=== PATIENT | male | born 1930 | race Caucasian/White ===

== ENCOUNTER 2016-12-10 13:34 | Inpatient (IN) | payer MEDICARE ==
[~2016-12-10] VITALS: Ht 185.4 cm; Wt 81.2 kg
[~2016-12-10 13:34] MED LIST: ASPIRIN ADULT L81 M1 PO; CRESTOR10 MG; ESIDREX,ORETI12.5 MG PO; LISINOPRIL10 MG PO; METFORMIN500 MG PO; METOPROLOL SR25 MG PO; NOVOLIN 70/30 701 EA SC; NOVOLIN 70100 UNIT/1 SC
[2016-12-10 13:42] VITALS: BP 170/86
[2016-12-10 14:12] LABS: BASO # 0.1 10*3/uL (0.0-0.1); BASO % 0.6 % (0.0-1.0); EOS # 0.1 10*3/uL (0.0-0.4); EOS % 1.4 % (1.0-4.0); HEMATOCRIT 36.9 % (42.0-52.0); HEMOGLOBIN 12.3 g/dl (14.0-18.0); LYMPH # 3.7 10*3/uL (1.3-4.4); LYMPH % 37.5 % (27.0-41.0); MEAN CELL VOLUME 90.2 fl (80.0-94.0); MEAN CORPUSCULAR HGB 30.1 pg (27.0-31.0); MEAN CORPUSCULAR HGB CONC 33.3 g/dl (33.0-37.0); MEAN PLATELET VOLUME 10.2 fl (9.6-12.3); MONO # 0.6 10*3/uL (0.1-1.0); MONO % 6.3 % (3.0-9.0); NEUT # 5.3 10*3/uL (2.3-7.9); PLATELET COUNT AUTOMATED 200 10*3/uL (130-400); RED BLOOD COUNT 4.09 10*6/uL (4.50-5.90); RED CELL DISTRI WIDTH 14.5 % (0-14.5); WHITE BLOOD COUNT 9.7 10*3/uL (4.8-10.8)
[2016-12-10 14:21] LABS: ACT PARTIAL THROMBO TIME 22.7 SECONDS (20.8-31.5)
[2016-12-10 14:28] LABS: ALKALINE PHOSPHATASE 83 U/L (45-117); BUN 29 mg/dl (7-24); CHLORIDE 107 mmol/L (98-107); CREATININE 1.87 mg/dL (0.70-1.30); MAGNESIUM 1.9 mg/dL (1.5-2.1); POTASSIUM 5.6 mmol/L (3.5-5.1); SGOT/AST 43 IU/L (3-35); SGPT/ALT 27 U/L (12-78); SODIUM 139 mmol/L (136-145); TOTAL PROTEIN 7.3 gm/dL (6.4-8.2)
[2016-12-10 14:31] LABS: TROPONIN I < 0.015 ng/ml (<0.045)
[2016-12-10 14:33] LABS: CKMB 5.6 ng/ml (0.5-3.6)
[2016-12-10 14:50] VITALS: BP 133/57
[2016-12-10 15:42] VITALS: BP 149/49
[2016-12-10 16:49] LABS: BILIRUBIN NEGATIVE (NEGATIVE); BLOOD TRACE-LYSED (NEGATIVE); CLARITY CLEAR (CLEAR); COLOR YELLOW (YELLOW); GLUCOSE NEGATIVE (NEGATIVE); KETONE NEGATIVE (NEGATIVE); LEUKO ESTERASE NEGATIVE (NEGATIVE); NITRITE NEGATIVE (NEGATIVE); UROBILINOGEN 0.2 E.U./dl (0.2-1.0)
[2016-12-10 16:58] LABS: URINE AMPHETAMINES < 1000 (1000ng/ml); URINE BARBITURATES < 200 (200ng/ml); URINE BENZODIAZEPINES < 200 (200ng/ml); URINE CANNABINOIDS (THC) < 50 (50ng/ml); URINE COCAINE < 300 (300ng/ml); URINE METHADONE < 300 (300ng/ml); URINE OPIATES < 300 (300ng/ml); URINE PHENCYCLIDINE < 25 (25ng/ml)
[2016-12-10 17:03] LABS: BACTERIA TRACE
[2016-12-10 17:04] LABS: EPITHELIAL CELLS 0-2
--- NOTE | 2016-12-10 17:11 | NUR ---
MED REC REVIEWED AND COMPLETED WITH YAZMIN MONTOYA [facility]
[2016-12-10 17:18] LABS: CPK 713 U/L (39-308)
[2016-12-10 17:24] LABS: CKMB 5.9 ng/ml (0.5-3.6); TROPONIN I < 0.015 ng/ml (<0.045)
--- NOTE | 2016-12-10 17:27 | NUR ---
CALLED AND SPOKE JULIO DR [place] REPORTED [facility] CAME BACK AT 5.9.
[2016-12-10 20:00] VITALS: BP 145/50; BP 164/56
[2016-12-10 20:40] LABS: CPK 790 U/L (39-308)
[2016-12-10 20:44] LABS: TROPONIN I < 0.015 ng/ml (<0.045)
[2016-12-10 20:51] LABS: CKMB 5.6 ng/ml (0.5-3.6)
--- NOTE | 2016-12-10 21:00 | NUR ---
CALLED DR KAPLAN AND NOTIFIED PATIENTS [facility] WAS 5.6 NO ORDERS RECEIVED AT THIS TIME
--- NOTE | 2016-12-10 23:27 | NUR ---
PATIENT RESTING IN BED NO CO AT THIS TIME SEE SHIFT ASSESSMENT
[2016-12-11] VITALS: BP 134/55; BP 164/56
[2016-12-11 04:00] VITALS: BP 134/55
--- NOTE | 2016-12-11 05:28 | NUR ---
PATIENT SLEEPING IN [facility] ERN CALL LIGHT IN REACH
[2016-12-11 07:12] LABS: BASO # 0.1 10*3/uL (0.0-0.1); BASO % 0.5 % (0.0-1.0); EOS # 0.4 10*3/uL (0.0-0.4); EOS % 4.3 % (1.0-4.0); HEMATOCRIT 38.8 % (42.0-52.0); HEMOGLOBIN 12.5 g/dl (14.0-18.0); LYMPH % 50.7 % (27.0-41.0); MEAN CELL VOLUME 92.4 fl (80.0-94.0); MEAN CORPUSCULAR HGB 29.8 pg (27.0-31.0); MEAN CORPUSCULAR HGB CONC 32.2 g/dl (33.0-37.0); MONO # 0.5 10*3/uL (0.1-1.0); MONO % 5.4 % (3.0-9.0); NEUT # 3.8 10*3/uL (2.3-7.9); NEUT % 38.9 % (47.0-73.0); PLATELET COUNT AUTOMATED 217 10*3/uL (130-400); RED CELL DISTRI WIDTH 14.6 % (0-14.5); WHITE BLOOD COUNT 9.9 10*3/uL (4.8-10.8)
[2016-12-11 07:39] LABS: ALBUMIN 3.9 gm/dl (3.1-4.5); CREATININE 1.45 mg/dL (0.70-1.30); MAGNESIUM 1.7 mg/dL (1.5-2.1); PHOSPHOROUS 3.4 mg/dL (2.5-4.9); THYROID STIM HORMONE (HS) 3.61 uIU/ml (0.358-4.75); TOTAL PROTEIN 7.3 gm/dL (6.4-8.2)
[2016-12-11 08:00] VITALS: BP 130/52
[2016-12-11 08:33] LABS: VITAMIN D, 25-HYDROXY 30.7 ng/mL (30-100)
[2016-12-11] MEDS ORDERED: NORVASC5 MG PO (09:33)
[2016-12-11] MEDS ORDERED: K-TAB ER8 MEQ PO (09:34)
[2016-12-11] MEDS ORDERED: ALLOPURINOL100 MG PO (09:34)
--- NOTE | 2016-12-11 09:40 | NUR ---
[facility] List in computer is very different than list supplied by pharmacist. List updated from meds provided by [facility]. Spoke with pt and he states that he does receive some meds from [facility] as well. States he takes crestor and insulin which he gets from [facility]. I asked the pt the other medications that were on the list prior to calling [facility] and pt states he is unsure if he takes those or not. Consent for info signed by pt and this was faxed to [facility] by hospital ward clerk to obtain a list of meds from [facility].
[2016-12-11] MEDS ORDERED: CRESTOR10 M1 PO (09:43)
[2016-12-11] MEDS ORDERED: NOVOLIN 70100 UNIT/1 SC (11:28)
--- NOTE | 2016-12-11 11:50 | NUR ---
Spoke with pt daughter who lives in [place]. Notified that has put in order for discharge.
--- NOTE | 2016-12-11 13:39 | NUR ---
Discharge instructions reviewed with family. Patient receptive and verbalizes understanding. Follow-up care arranged. Written instructions given to family. Reviewed medications needed when pt goes home. JOHNNY JACKSON
--- NOTE | 2016-12-11 13:45 | NUR ---
Left via ambulatory in care of self. Assisted by PA with belongings. Pt has private care parked out the first floor.
== END 2016-12-11 13:45 | disposition home or self-care (01) | DRG 682 ==
LOC: ED 13:34 → 4E 14:48 → EDHOLD 14:48 → 4E 14:59
PROVIDERS: Internal Medicine; Internal Medicine Nephrology; Nurse Practitioner Family; ADMIT Internal Medicine
DX: N17.0 Acute kidney failure with tubular necrosis (principal); G93.41 Metabolic encephalopathy; E87.5 Hyperkalemia; E11.65 Type 2 diabetes mellitus with hyperglycemia; E86.0 Dehydration; R42 Dizziness and giddiness; R74.0 Nonspecific elevation of levels of transaminase and lactic acid dehydrogenase [LDH]; M1A.9XX0 Chronic gout, unspecified, without tophus (tophi); F41.9 Anxiety disorder, unspecified; S00.81XA Abrasion of other part of head, initial encounter; S00.31XA Abrasion of nose, initial encounter; S60.229A Contusion of unspecified hand, initial encounter; I10 Essential (primary) hypertension; E78.5 Hyperlipidemia, unspecified; Z79.4 Long term (current) use of insulin; Z79.82 Long term (current) use of aspirin; Z79.84 Long term (current) use of oral hypoglycemic drugs; Z79.899 Other long term (current) drug therapy; Z82.49 Family history of ischemic heart disease and other diseases of the circulatory system; Z83.3 Family history of diabetes mellitus; Z80.0 Family history of malignant neoplasm of digestive organs; Z84.89 Family history of other specified conditions; Z87.891 Personal history of nicotine dependence; S60.222A Contusion of left hand, initial encounter; S60.221A Contusion of right hand, initial encounter

== ENCOUNTER 2018-01-04 14:00 | Inpatient (IN) | payer OTHER, MEDICARE ==
[~2018-01-04] VITALS: Ht 182.8 cm; Wt 83.5 kg
--- NOTE | ~2018-01-04 | EKG ---
[place], [place] ELECTROCARDIOGRAM REPORT NAME: JACQUI SPEARS UNIT #: [id number] ROOM: 412 DOCTOR: ELGIN DRAFT REPORT BIRTHDATE: [birth year] [facility] Test Date: 2018-01-04 Test Time: 14:49:12 Pat Name: JACQUI SPEARS Department: Room: 412 Gender: M Personnel Interviewer: EKG.MN : 1930 Requested By: HARRISON JULES PA-C Order Number: [id number] Reading MD: Manjit Lindsey MD Measurements Intervals [place] Rate: 52 P: 7 VA: 175 QRS: -43 QRSD: 117 T: 9 QT: 503 QTc: 468 Interpretive Statements Sinus rhythm Ventricular premature complex Nonspecific IVCD with LAD No previous ECG available for comparison Electronically Signed On 01-06-2018 4:18:07 PDT by Manjit Lindsey MD CM:EKGRPT:ELECTROCARDIOGRAM REPORT [id number] HARRISON JULES PA-C EPIPHANY DRAFT REPORT HARRISON JULES PA-C
[2018-01-04 14:00] VITALS: BP 165/52
[~2018-01-04 14:00] MED LIST changes: +ALLOPURINOL100 MG PO; +CRESTOR10 M1 PO; +K-TAB ER8 MEQ PO; +NORVASC5 MG PO
[2018-01-04 14:45] LABS: BASO % 0.4 % (0.0-1.0); EOS # 0.1 10*3/uL (0.0-0.4); EOS % 2.5 % (1.0-4.0); HEMATOCRIT 39.2 % (42.0-52.0); HEMOGLOBIN 12.8 g/dl (14.0-18.0); LYMPH # 1.8 10*3/uL (1.3-4.4); LYMPH % 32.4 % (27.0-41.0); MEAN CELL VOLUME 88.9 fl (80.0-94.0); MEAN CORPUSCULAR HGB CONC 32.7 g/dl (33.0-37.0); MEAN PLATELET VOLUME 10.3 fl (9.6-12.3); MONO # 0.3 10*3/uL (0.1-1.0); MONO % 5.1 % (3.0-9.0); NEUT # 3.3 10*3/uL (2.3-7.9); NEUT % 59.4 % (47.0-73.0); PLATELET COUNT AUTOMATED 155 10*3/uL (130-400); RED BLOOD COUNT 4.41 10*6/uL (4.50-5.90); RED CELL DISTRI WIDTH 13.2 % (0-14.5); WHITE BLOOD COUNT 5.5 10*3/uL (4.8-10.8)
[2018-01-04 15:00] VITALS: BP 164/62
[2018-01-04 15:05] LABS: ALBUMIN 3.6 gm/dl (3.1-4.5); ALKALINE PHOSPHATASE 84 U/L (45-117); BUN 15 mg/dl (7-24); CHLORIDE 105 mmol/L (98-107); CREATININE 1.09 mg/dL (0.70-1.30); POTASSIUM 3.6 mmol/L (3.5-5.1); SGOT/AST 25 IU/L (3-35); SGPT/ALT 19 U/L (12-78); SODIUM 141 mmol/L (136-145)
[2018-01-04 15:06] LABS: TROPONIN I < 0.015 ng/ml (<0.045)
[2018-01-04 16:02] LABS: BILIRUBIN NEGATIVE (NEGATIVE); BLOOD TRACE-INTACT (NEGATIVE); CLARITY CLEAR (CLEAR); COLOR YELLOW (YELLOW); GLUCOSE NEGATIVE (NEGATIVE); KETONE 1+ (NEGATIVE); LEUKO ESTERASE NEGATIVE (NEGATIVE); NITRITE NEGATIVE (NEGATIVE); PH 5.5 (5.0-9.0); UROBILINOGEN 0.2 E.U./dl (0.2-1.0)
[2018-01-04 16:39] LABS: BACTERIA TRACE; RBC 0-2 rbc/hpf (0-2); WBC 0-2 wbc/hpf (0-5)
[2018-01-04 17:00] VITALS: BP 172/58
[2018-01-04 17:50] VITALS: BP 177/56
[2018-01-04] MEDS ORDERED: ONGLYZA2.5 MG PO (18:35)
[2018-01-04] MEDS ORDERED: PRINIVIL10 MG PO (18:35)
[2018-01-04] MEDS ORDERED: FLOMAX0.4 MG PO (18:36)
[2018-01-04] MEDS ORDERED: Meclizine25 MG PO (18:37)
[2018-01-04] MEDS ORDERED: ATORVASTATIN CA80 M1 PO (18:37)
[2018-01-04] MEDS ORDERED: Lopressor25 MG PO (18:38)
[2018-01-04] MEDS ORDERED: PRESERVISION A1 EAC1 PO (18:39)
[2018-01-04 18:46] VITALS: BP 179/60
[2018-01-04 20:00] VITALS: BP 144/53
[2018-01-05] VITALS: BP 130/54
[2018-01-05 06:03] LABS: ALBUMIN 3.1 gm/dl (3.1-4.5); ALKALINE PHOSPHATASE 71 U/L (45-117); BUN 16 mg/dl (7-24); CHLORIDE 109 mmol/L (98-107); CHOLESTEROL 97 mg/dL (<200); CREATININE 0.97 mg/dL (0.70-1.30); FREE T4 1.11 ng/dl (0.76-1.46); HDL CHOLESTEROL 43 mg/dl (40-60); LDL CHOLESTEROL 40 mg/dL (9-159); PHOSPHOROUS 2.8 mg/dL (2.5-4.9); POTASSIUM 3.4 mmol/L (3.5-5.1); SGOT/AST 16 IU/L (3-35); SGPT/ALT 14 U/L (12-78); SODIUM 145 mmol/L (136-145); TOTAL PROTEIN 5.7 gm/dL (6.4-8.2); TRIGLYCERIDES 69 mg/dl (<150); VLDL CHOLESTEROL 14 mg/dL (6-40)
[2018-01-05 06:17] LABS: BASO % 0.4 % (0.0-1.0); EOS # 0.2 10*3/uL (0.0-0.4); EOS % 3.3 % (1.0-4.0); HEMATOCRIT 34.5 % (42.0-52.0); HEMOGLOBIN 11.5 g/dl (14.0-18.0); LYMPH # 3.4 10*3/uL (1.3-4.4); LYMPH % 49.3 % (27.0-41.0); MEAN CELL VOLUME 87.3 fl (80.0-94.0); MEAN CORPUSCULAR HGB 29.1 pg (27.0-31.0); MEAN CORPUSCULAR HGB CONC 33.3 g/dl (33.0-37.0); MEAN PLATELET VOLUME 10.4 fl (9.6-12.3); MONO # 0.4 10*3/uL (0.1-1.0); MONO % 6.2 % (3.0-9.0); NEUT # 2.8 10*3/uL (2.3-7.9); NEUT % 40.5 % (47.0-73.0); PLATELET COUNT AUTOMATED 157 10*3/uL (130-400); RED BLOOD COUNT 3.95 10*6/uL (4.50-5.90); RED CELL DISTRI WIDTH 13.5 % (0-14.5); WHITE BLOOD COUNT 6.9 10*3/uL (4.8-10.8)
[2018-01-05 08:00] VITALS: BP 148/62
[2018-01-05 08:13] LABS: VITAMIN D, 25-HYDROXY 18.5 ng/mL (30-100)
[2018-01-05 12:00] VITALS: BP 146/54
[2018-01-05] MEDS ORDERED: LANTUS SOL100 UNIT/1 SC (12:34)
[2018-01-05 16:00] VITALS: BP 142/62
[2018-01-05 20:00] VITALS: BP 135/48
[2018-01-06] VITALS: BP 145/65
[2018-01-06 07:30] LABS: BUN 17 mg/dl (7-24); CHLORIDE 110 mmol/L (98-107); POTASSIUM 4.1 mmol/L (3.5-5.1); SODIUM 143 mmol/L (136-145)
[2018-01-06] MEDS ORDERED: Vitamin D PO (13:27)
== END 2018-01-06 15:30 | disposition home or self-care (01) | DRG 312 ==
LOC: ED 14:00 → EDHOLD 16:49 → 4E 16:49
PROVIDERS: Internal Medicine; Physician Assistant
DX: I95.1 Orthostatic hypotension (principal); R00.1 Bradycardia, unspecified; R80.9 Proteinuria, unspecified; R82.4 Acetonuria; E78.5 Hyperlipidemia, unspecified; F41.9 Anxiety disorder, unspecified; D64.9 Anemia, unspecified; M1A.9XX0 Chronic gout, unspecified, without tophus (tophi); E11.65 Type 2 diabetes mellitus with hyperglycemia; E87.6 Hypokalemia; E55.9 Vitamin D deficiency, unspecified; I10 Essential (primary) hypertension; Z79.82 Long term (current) use of aspirin; Z79.84 Long term (current) use of oral hypoglycemic drugs; Z79.899 Other long term (current) drug therapy; Z95.4 Presence of other heart-valve replacement; Z83.3 Family history of diabetes mellitus; Z82.49 Family history of ischemic heart disease and other diseases of the circulatory system; Z84.89 Family history of other specified conditions; Z80.0 Family history of malignant neoplasm of digestive organs; Z79.4 Long term (current) use of insulin

== ENCOUNTER 2018-11-02 12:05 | Emergency (ER) | payer OTHER ==
--- NOTE | ~2018-11-02 | EKG ---
[place], [place] ELECTROCARDIOGRAM REPORT NAME: JACQUI SPEARS UNIT #: [id number] ROOM: DOCTOR: EPIPHANY DRAFT REPORT BIRTHDATE: [birth year] [facility] Test Date: 2018-11-02 Test Time: 12:40:04 Pat Name: JACQUI SPEARS Department: Room: Gender: Airborne Operations Manager: Antonia Anderson : 1930 Requested By: HEATHER SAUNDERS Order Number: [id number] Reading MD: Owen Freeman MD Measurements Intervals [place] Rate: 82 P: 54 NE: 173 QRS: -52 QRSD: 109 T: 62 QT: 407 QTc: 476 Interpretive Statements Sinus rhythm Atrial premature complexes Left anterior fascicular block Borderline prolonged QT interval Compared to ECG 01/04/2018 14:49:12 Atrial premature complex(es) now present Left anterior fascicular block now present Ventricular premature complex(es) no longer present Intraventricular conduction delay no longer present Electronically Signed On 11-07-2018 4:05:54 PDT by Owen Freeman MD CM:EKGRPT:ELECTROCARDIOGRAM REPORT [id number] HEATHER EISENBERG DRAFT REPORT HEATHER SAUNDERS M.D.
[~2018-11-02 12:05] MED LIST changes: +ATORVASTATIN CA80 M1 PO; +FLOMAX0.4 MG PO; +LANTUS SOL100 UNIT/1 SC; +Lopressor25 MG PO; +Meclizine25 MG PO; +ONGLYZA2.5 MG PO; +PRESERVISION A1 EAC1 PO; +PRINIVIL10 MG PO; +Vitamin D PO
[2018-11-02 12:56] LABS: BASO # 0.1 10*3/uL (0.0-0.1); BASO % 0.7 % (0.0-1.0); EOS # 0.1 10*3/uL (0.0-0.4); EOS % 0.9 % (1.0-4.0); HEMATOCRIT 41.4 % (42.0-52.0); HEMOGLOBIN 13.7 g/dl (14.0-18.0); LYMPH # 2.2 10*3/uL (1.3-4.4); LYMPH % 29.2 % (27.0-41.0); MEAN CELL VOLUME 90.4 fl (80.0-94.0); MEAN CORPUSCULAR HGB 29.9 pg (27.0-31.0); MEAN CORPUSCULAR HGB CONC 33.1 g/dl (33.0-37.0); MEAN PLATELET VOLUME 11.4 fl (9.6-12.3); MONO # 0.4 10*3/uL (0.1-1.0); MONO % 5.7 % (3.0-9.0); NEUT # 4.8 10*3/uL (2.3-7.9); NEUT % 63.1 % (47.0-73.0); PLATELET COUNT AUTOMATED 215 10*3/uL (130-400); RED BLOOD COUNT 4.58 10*6/uL (4.50-5.90); RED CELL DISTRI WIDTH 13.3 % (0-14.5); WHITE BLOOD COUNT 7.6 10*3/uL (4.8-10.8)
[2018-11-02 13:13] LABS: ALBUMIN 3.7 gm/dl (3.1-4.5); CREATININE 1.93 mg/dL (0.70-1.30); POTASSIUM 4.3 mmol/L (3.5-5.1); TOTAL PROTEIN 7.3 gm/dL (6.4-8.2)
== END 2018-11-02 17:00 | disposition short-term general hospital (02) ==
LOC: ED 12:05
PROVIDERS: Emergency Medicine
DX: E11.65 Type 2 diabetes mellitus with hyperglycemia (principal); R56.9 Unspecified convulsions; M25.512 Pain in left shoulder; M10.9 Gout, unspecified; E78.5 Hyperlipidemia, unspecified; I10 Essential (primary) hypertension; Z87.891 Personal history of nicotine dependence; Z79.899 Other long term (current) drug therapy; Z79.82 Long term (current) use of aspirin; W18.39XA Other fall on same level, initial encounter; Y93.89 Activity, other specified; Y92.89 Other specified places as the place of occurrence of the external cause; Y99.8 Other external cause status

== ENCOUNTER 2019-01-11 16:14 | Inpatient (IN) | payer OTHER ==
[~2019-01-11] VITALS: Ht 182.8 cm; Wt 76.3 kg
[2019-01-11 16:22] VITALS: BP 109/46
[2019-01-11 17:20] VITALS: BP 140/39
[2019-01-11 17:26] LABS: BASO % 0.5 % (0.0-1.0); EOS # 0.3 10*3/uL (0.0-0.4); HEMATOCRIT 36.9 % (42.0-52.0); HEMOGLOBIN 12.6 g/dl (14.0-18.0); LYMPH % 47.3 % (27.0-41.0); MEAN CELL VOLUME 88.5 fl (80.0-94.0); MEAN CORPUSCULAR HGB 30.2 pg (27.0-31.0); MEAN CORPUSCULAR HGB CONC 34.1 g/dl (33.0-37.0); MONO # 0.5 10*3/uL (0.1-1.0); MONO % 5.7 % (3.0-9.0); NEUT # 3.6 10*3/uL (2.3-7.9); NEUT % 42.3 % (47.0-73.0); PLATELET COUNT AUTOMATED 185 10*3/uL (130-400); RED BLOOD COUNT 4.17 10*6/uL (4.50-5.90); RED CELL DISTRI WIDTH 13.4 % (0-14.5); WHITE BLOOD COUNT 8.4 10*3/uL (4.8-10.8)
[2019-01-11 17:41] LABS: ALBUMIN 3.5 gm/dl (3.1-4.5); CREATININE 1.71 mg/dL (0.70-1.30); POTASSIUM 4.2 mmol/L (3.5-5.1); TOTAL PROTEIN 6.4 gm/dL (6.4-8.2)
--- NOTE | 2019-01-11 17:44 | NUR ---
DR SAUNDERS AWARE OF CRITICAL GLUCOSE LEVEL FO 515.
[2019-01-11 17:59] LABS: BILIRUBIN NEGATIVE (NEGATIVE); BLOOD NEGATIVE (NEGATIVE); CLARITY CLEAR (CLEAR); COLOR YELLOW (YELLOW); GLUCOSE 3+ (NEGATIVE); KETONE NEGATIVE (NEGATIVE); LEUKO ESTERASE NEGATIVE (NEGATIVE); NITRITE NEGATIVE (NEGATIVE); SPECIFIC GRAVITY <= 1.005 (1.005-1.030); UROBILINOGEN 0.2 E.U./dl (0.2-1.0)
[2019-01-11 18:08] LABS: BACTERIA TRACE; WBC 0-2 wbc/hpf (0-5); YEAST TRACE
--- NOTE | 2019-01-11 19:02 | NUR ---
NURSE TO NURSE FROM [facility] AND [facility] AT THIS TIME. PATIENT HAS A BED ASSIGNMENT BUT RECEIVING NURSE WILL NOT BE AVAILABLE UNTIL AFTER 7.
--- NOTE | 2019-01-11 19:46 | NUR ---
A 88, admitted to 4E, under the services of SHERLY Agrawal DO with a diagnosis of HYPERGLYCEMIA. Chief complaint is MULTIPLE COMPLAINTS. Patient arrived via bed from ER. Monitor applied. Initial assessment completed. Vital signs taken and recorded. SHERLY AGRAWAL DO notified of admission to the unit. Orders received. See assessment for past medical history, medications and allergies. Patient and/or family oriented to unit. [facility] visitation policy reviewed. Clothing/patient valuable form completed. EVANS MAYA
[2019-01-11 19:47] VITALS: BP 150/70
[2019-01-12] VITALS: BP 124/37
[2019-01-12 06:06] LABS: ALKALINE PHOSPHATASE 70 U/L (45-117); BUN 26 mg/dl (7-24); CHLORIDE 110 mmol/L (98-107); CHOLESTEROL 129 mg/dL (<200); CREATININE 1.22 mg/dL (0.70-1.30); FREE T4 1.05 ng/dl (0.76-1.46); HDL CHOLESTEROL 44 mg/dl (40-60); LDL CHOLESTEROL 67 mg/dL (9-159); PHOSPHOROUS 2.9 mg/dL (2.5-4.9); POTASSIUM 3.7 mmol/L (3.5-5.1); SGOT/AST 19 IU/L (3-35); SGPT/ALT 23 U/L (12-78); SODIUM 141 mmol/L (136-145); TRIGLYCERIDES 88 mg/dl (<150); VLDL CHOLESTEROL 18 mg/dL (6-40)
[2019-01-12 06:18] LABS: HEMATOCRIT 36.2 % (42.0-52.0); HEMOGLOBIN 12.1 g/dl (14.0-18.0); MEAN CELL VOLUME 88.7 fl (80.0-94.0); MEAN CORPUSCULAR HGB 29.7 pg (27.0-31.0); MEAN CORPUSCULAR HGB CONC 33.4 g/dl (33.0-37.0); MEAN PLATELET VOLUME 10.8 fl (9.6-12.3); PLATELET COUNT AUTOMATED 170 10*3/uL (130-400); RED BLOOD COUNT 4.08 10*6/uL (4.50-5.90); RED CELL DISTRI WIDTH 13.5 % (0-14.5); WHITE BLOOD COUNT 8.7 10*3/uL (4.8-10.8)
[2019-01-12 06:42] LABS: TOTAL CELLS COUNTED 100 #CELLS
[2019-01-12 06:43] LABS: OVALOCYTES FEW; PLATELET SUFFICIENCY NORMAL (NORMAL); POLYCHROMASIA SLIGHT
[2019-01-12 07:50] LABS: VITAMIN D, 25-HYDROXY 37.1 ng/mL (30-100)
[2019-01-12 08:00] VITALS: BP 149/56
--- NOTE | 2019-01-12 08:50 | NUR ---
PHYSICAL THERAPY Physical therapy evaluation complete, 4E. Low complexity PT evaluation (43064) per chart review and evaluation. PT to progress with transfers, gait, balance, and LE ther ex per POC. Recommend discharge home with home health vs outpatient PT. Thank you. Serena Rowan,PT,DPT.
--- NOTE | 2019-01-12 09:00 | NUR ---
Brand Planner in to talk to patient. Patient states lives at home with alone. There are few steps in the home. Physician: [facility]: [facility] Home health services: none Patient's level of ADLs: INDEPENDENT Patient has working utilities: all working DME: none Follow-up physician's appointment after d/c: will be made by hospitalist nurse director upon discharge Does patient want to access PORTAL?: no Discharge plan discussed with patient, he states he lives at home alone, is independent in adls and ambulation, patient states he will return home when able and denies any home needs. JOHANNA BILLY
[2019-01-12 12:00] VITALS: BP 140/47
[2019-01-12] MEDS ORDERED: LEVETIRACETAM500 MG PO (15:43)
--- NOTE | 2019-01-12 15:51 | NUR ---
Occupational Therapy evaluation completed on 4 with full eval to follow. Precautions include fall risk in unfamiliar environment, severe hard of hearing, low complexity level 90903 via chart review, testing and evaluation. Recommend home health SN, OT for home safety assessment. Thank you. Mainor Vasquez OTR/L
[2019-01-12 16:00] VITALS: BP 102/46
[2019-01-12 20:00] VITALS: BP 103/75
[2019-01-13] VITALS: BP 121/48
--- NOTE | 2019-01-13 06:45 | NUR ---
TYLENOL GIVEN PER PRN ORDER FOR C/O BACK PAIN. SEE EMAR. REINFORCED USE OF CALL LIGHT.
--- NOTE | 2019-01-13 06:53 | NUR ---
PATIENT BLOOD SUGAR 58. PATIENT GIVEN PEANUT BUTTER LOR CRACKERS AND ORANGE JUICE. WILL RECHECK BLOOD SUGAR. DR. KUO AWARE.
[2019-01-13 06:59] LABS: BASO % 0.4 % (0.0-1.0); EOS # 0.2 10*3/uL (0.0-0.4); EOS % 2.9 % (1.0-4.0); HEMATOCRIT 38.7 % (42.0-52.0); LYMPH # 2.8 10*3/uL (1.3-4.4); LYMPH % 33.5 % (27.0-41.0); MEAN CORPUSCULAR HGB 29.9 pg (27.0-31.0); MEAN CORPUSCULAR HGB CONC 33.6 g/dl (33.0-37.0); MEAN PLATELET VOLUME 10.7 fl (9.6-12.3); MONO # 0.5 10*3/uL (0.1-1.0); MONO % 5.6 % (3.0-9.0); NEUT # 4.7 10*3/uL (2.3-7.9); NEUT % 57.1 % (47.0-73.0); PLATELET COUNT AUTOMATED 192 10*3/uL (130-400); RED BLOOD COUNT 4.35 10*6/uL (4.50-5.90); RED CELL DISTRI WIDTH 13.7 % (0-14.5); WHITE BLOOD COUNT 8.2 10*3/uL (4.8-10.8)
[2019-01-13 07:19] LABS: CHLORIDE 107 mmol/L (98-107); POTASSIUM 3.6 mmol/L (3.5-5.1); SODIUM 140 mmol/L (136-145)
[2019-01-13 07:26] LABS: BUN 24 mg/dl (7-24); CREATININE 1.27 mg/dL (0.70-1.30)
[2019-01-13 08:00] VITALS: BP 122/42
[2019-01-13 12:00] VITALS: BP 122/42
[2019-01-13 16:00] VITALS: BP 102/50
[2019-01-13 20:00] VITALS: BP 113/43
--- NOTE | 2019-01-13 21:31 | NUR ---
INFORMED THAT PATIENT WAS INQUIRING ABOUT HOME MEDS AND STATED THAT MECLIZINE WAS JOSE BID AND ASKING WHY HE WASNT GETTING KEPPRA. KEPPRA WAS NOT CONT NOR HOLD AND MECLIZINE WAS ORDERS PRN INSTEAD OF JOSE. STATED HE WILL LOOK AT ORDERS.
--- NOTE | 2019-01-13 23:00 | NUR ---
REPORT RECIEVED FROM OFF GOING NURSE, PATIENT SLEEPING, DID NOT AWAKEN DURING REPORT, WHITE BOARD UPDATED.
--- NOTE | 2019-01-13 23:18 | NUR ---
24 HR chart check completed.
[2019-01-14] VITALS: BP 133/44
--- NOTE | 2019-01-14 04:05 | NUR ---
Patient sleeping. Respirations relaxed and easy. Siderails up 2. [place] on, bed in low position, call light within reach. REBEKAH DOLL
[2019-01-14 07:02] LABS: BUN 28 mg/dl (7-24); CHLORIDE 105 mmol/L (98-107); CREATININE 1.26 mg/dL (0.70-1.30); POTASSIUM 3.9 mmol/L (3.5-5.1); SODIUM 139 mmol/L (136-145)
[2019-01-14 08:00] VITALS: BP 124/47
[2019-01-14] MEDS ORDERED: Lantus SC (10:06)
[2019-01-14] MEDS ORDERED: TRAD5TAB1 PO (10:06)
[2019-01-14] MEDS ORDERED: Humalog SQ (10:06)
--- NOTE | 2019-01-14 10:21 | NUR ---
ATTEMPTED TO REACH [facility] REGARDING DISCHARGE. NO ANSWER AT THIS TIME. WILL TRY AGAIN.
--- NOTE | 2019-01-14 10:58 | NUR ---
NOTIFIED REGARDING PATIENT NEEDING TESTING STRIPS FOR HOME.
[2019-01-14] MEDS ORDERED: TEST STRIPS1 EACH SC (10:59)
--- NOTE | 2019-01-14 11:32 | NUR ---
Discharge instructions reviewed with patient/family. Patient receptive and verbalizes understanding. Follow-up care arranged. Written instructions given to patient/family. LIZANDRO TURNER.
--- NOTE | 2019-01-14 11:32 | NUR ---
PATIENT INSTRUCTED REGARDING BLOOD SUGAR TESTING ACHS AND THE USE OF SLIDING SCALE. PATIENT VOICED UNDERSTANDING. PATIENT'S CAREGIVER JOSE LUIS INFORMED WELL.
--- NOTE | 2019-01-14 12:00 | NUR ---
PT DISCHARGED AT THIS TIME. BELONGINGS WITH PATIENT.
== END 2019-01-14 12:00 | disposition home or self-care (01) | DRG 637 ==
LOC: ED 16:14 → EDHOLD 18:24 → 4E 18:24
PROVIDERS: Emergency Medicine; Family Medicine; Internal Medicine; ADMIT Internal Medicine
DX: E11.65 Type 2 diabetes mellitus with hyperglycemia (principal); N17.0 Acute kidney failure with tubular necrosis; E44.0 Moderate protein-calorie malnutrition; E87.1 Hypo-osmolality and hyponatremia; E86.0 Dehydration; I10 Essential (primary) hypertension; E78.5 Hyperlipidemia, unspecified; D64.9 Anemia, unspecified; M10.9 Gout, unspecified; F41.9 Anxiety disorder, unspecified; E55.9 Vitamin D deficiency, unspecified; E87.8 Other disorders of electrolyte and fluid balance, not elsewhere classified; E11.649 Type 2 diabetes mellitus with hypoglycemia without coma; Z82.49 Family history of ischemic heart disease and other diseases of the circulatory system; Z79.4 Long term (current) use of insulin; Z83.3 Family history of diabetes mellitus; Z80.0 Family history of malignant neoplasm of digestive organs; Z68.22 Body mass index [BMI] 22.0-22.9, adult

== ENCOUNTER 2019-11-25 08:01 | Emergency (ER) | payer MEDICARE ==
[~2019-11-25] VITALS: Ht 182.8 cm; Wt 77.1 kg
[~2019-11-25 08:01] MED LIST changes: +Humalog SQ; +LEVETIRACETAM500 MG PO; +Lantus SC; +TEST STRIPS1 EACH SC; +TRAD5TAB1 PO
[2019-11-25 08:36] LABS: BASO % 0.3 % (0.0-1.0); EOS # 0.3 10*3/uL (0.0-0.4); LYMPH # 2.8 10*3/uL (1.3-4.4); LYMPH % 45.2 % (27.0-41.0); MEAN CORPUSCULAR HGB 29.8 pg (27.0-31.0); MEAN CORPUSCULAR HGB CONC 33.1 g/dl (33.0-37.0); MONO # 0.3 10*3/uL (0.1-1.0); MONO % 5.3 % (3.0-9.0); NEUT # 2.8 10*3/uL (2.3-7.9); PLATELET COUNT AUTOMATED 172 10*3/uL (130-400); RED BLOOD COUNT 3.89 10*6/uL (4.50-5.90); RED CELL DISTRI WIDTH 13.6 % (0-14.5); WHITE BLOOD COUNT 6.2 10*3/uL (4.8-10.8)
[2019-11-25 08:51] LABS: ALBUMIN 3.7 gm/dl (3.1-4.5); CREATININE 1.49 mg/dL (0.70-1.30); TOTAL PROTEIN 6.9 gm/dL (6.4-8.2)
== END 2019-11-25 10:05 | disposition home or self-care (01) ==
LOC: ED 08:01
PROVIDERS: Emergency Medicine
DX: S80.811A Abrasion, right lower leg, initial encounter (principal); E11.65 Type 2 diabetes mellitus with hyperglycemia; I10 Essential (primary) hypertension; E78.00 Pure hypercholesterolemia, unspecified; Z79.899 Other long term (current) drug therapy; Z79.82 Long term (current) use of aspirin; Z87.891 Personal history of nicotine dependence; X58.XXXA Exposure to other specified factors, initial encounter; Y93.89 Activity, other specified; Y92.89 Other specified places as the place of occurrence of the external cause; Y99.8 Other external cause status

== ENCOUNTER 2020-04-28 19:03 | Emergency (ER) | payer MEDICARE ==
[~2020-04-28] VITALS: Ht 182.8 cm; Wt 68.0 kg
[2020-04-28 19:49] LABS: BASO % 0.6 % (0.0-1.0); EOS # 0.1 10*3/uL (0.0-0.4); HEMATOCRIT 40.7 % (42.0-52.0); LYMPH # 1.7 10*3/uL (1.3-4.4); LYMPH % 24.1 % (27.0-41.0); MEAN CELL VOLUME 90.6 fl (80.0-94.0); MEAN CORPUSCULAR HGB 29.2 pg (27.0-31.0); MEAN CORPUSCULAR HGB CONC 32.2 g/dl (33.0-37.0); MEAN PLATELET VOLUME 10.8 fl (9.6-12.3); MONO # 0.3 10*3/uL (0.1-1.0); MONO % 4.1 % (3.0-9.0); NEUT # 4.9 10*3/uL (2.3-7.9); NEUT % 68.9 % (47.0-73.0); PLATELET COUNT AUTOMATED 161 10*3/uL (130-400); RED BLOOD COUNT 4.49 10*6/uL (4.50-5.90); RED CELL DISTRI WIDTH 12.9 % (0-14.5); WHITE BLOOD COUNT 7.2 10*3/uL (4.8-10.8)
[2020-04-28 20:06] LABS: ALBUMIN 3.7 gm/dl (3.1-4.5); ALKALINE PHOSPHATASE 63 U/L (45-117); BUN 38 mg/dl (7-24); CHLORIDE 104 mmol/L (98-107); CREATININE 1.43 mg/dL (0.70-1.30); POTASSIUM 3.8 mmol/L (3.5-5.1); SGOT/AST 15 IU/L (3-35); SGPT/ALT 17 U/L (12-78); SODIUM 139 mmol/L (136-145); TOTAL PROTEIN 6.6 gm/dL (6.4-8.2)
[2020-04-28 20:09] LABS: TROPONIN I < 0.015 ng/ml (<0.045)
[2020-04-28 22:58] LABS: BILIRUBIN Negative (Negative); BLOOD Trace-Lysed (Negative); CLARITY Clear (Clear); COLOR Yellow (Yellow); GLUCOSE Trace (Negative); KETONE 1+ (Negative); LEUKO ESTERASE Negative (Negative); NITRITE Negative (Negative); UROBILINOGEN 0.2 E.U./dl (0.0-1.0)
[2020-04-28 23:09] LABS: BACTERIA TRACE; WBC 0-2 wbc/hpf (0-5)
== END 2020-04-29 00:25 | disposition home or self-care (01) ==
LOC: ED 19:03
PROVIDERS: Physician Assistant
DX: R51.9 Headache, unspecified (principal); R11.0 Nausea; E11.9 Type 2 diabetes mellitus without complications; I10 Essential (primary) hypertension; E78.00 Pure hypercholesterolemia, unspecified; Z79.899 Other long term (current) drug therapy; Z79.4 Long term (current) use of insulin; Z79.82 Long term (current) use of aspirin; Z98.61 Coronary angioplasty status; Z87.891 Personal history of nicotine dependence

== ENCOUNTER 2020-05-14 04:17 | Inpatient (IN) | payer MEDICARE ==
[~2020-05-14] VITALS: Ht 182.9 cm; Wt 68.1 kg
[2020-05-14] VITALS (9 sets, daily range): BP systolic 100–135; BP diastolic 45–64
[2020-05-14 05:21] LABS: ALBUMIN 3.1 gm/dl (3.1-4.5); ALKALINE PHOSPHATASE 57 U/L (45-117); BUN 23 mg/dl (7-24); CHLORIDE 111 mmol/L (98-107); CREATININE 1.13 mg/dL (0.70-1.30); POTASSIUM 4.1 mmol/L (3.5-5.1); SGOT/AST 26 IU/L (3-35); SGPT/ALT 25 U/L (12-78); SODIUM 142 mmol/L (136-145); TOTAL PROTEIN 6.1 gm/dL (6.4-8.2)
[2020-05-14 05:50] LABS: HEMATOCRIT 36.4 % (42.0-52.0); MEAN CELL VOLUME 91.5 fl (80.0-94.0); MEAN CORPUSCULAR HGB 29.1 pg (27.0-31.0); MEAN CORPUSCULAR HGB CONC 31.9 g/dl (33.0-37.0); MEAN PLATELET VOLUME 10.5 fl (9.6-12.3); PLATELET COUNT AUTOMATED 177 10*3/uL (130-400); RED BLOOD COUNT 3.98 10*6/uL (4.50-5.90); RED CELL DISTRI WIDTH 13.7 % (0-14.5); WHITE BLOOD COUNT 9.8 10*3/uL (4.8-10.8)
[2020-05-14 06:36] LABS: PLATELET SUFFICIENCY NORMAL (NORMAL); TOTAL CELLS COUNTED 100 #CELLS
[2020-05-14 07:44] LABS: BILIRUBIN Negative (Negative); BLOOD Trace-Lysed (Negative); CLARITY Clear (Clear); COLOR Yellow (Yellow); GLUCOSE Negative (Negative); KETONE Negative (Negative); LEUKO ESTERASE Negative (Negative); NITRITE Negative (Negative); PH 5.5 (4.5-8.0); SPECIFIC GRAVITY 1.015 (1.001-1.030); UROBILINOGEN 0.2 E.U./dl (0.0-1.0)
[2020-05-14] MEDS ORDERED: LANTUS SOL100 UNIT/1 SC (16:06)
[2020-05-14] MEDS ORDERED: HYDR25T PO (16:07)
[2020-05-14] MEDS ORDERED: METOPROLOL SUCC25 M2 PO (16:20)
[2020-05-14] MEDS ORDERED: VITAMIN D3125 MCG PO (16:27)
[2020-05-15] VITALS: BP 105/42
[2020-05-15 06:38] LABS: BASO % 0.2 % (0.0-1.0); EOS # 0.1 10*3/uL (0.0-0.4); EOS % 0.4 % (1.0-4.0); HEMATOCRIT 33.1 % (42.0-52.0); LYMPH # 1.7 10*3/uL (1.3-4.4); LYMPH % 11.2 % (27.0-41.0); MEAN CELL VOLUME 93.2 fl (80.0-94.0); MEAN CORPUSCULAR HGB 29.9 pg (27.0-31.0); MEAN PLATELET VOLUME 10.6 fl (9.6-12.3); MONO # 0.4 10*3/uL (0.1-1.0); MONO % 2.9 % (3.0-9.0); NEUT # 12.7 10*3/uL (2.3-7.9); PLATELET COUNT AUTOMATED 161 10*3/uL (130-400); RED BLOOD COUNT 3.55 10*6/uL (4.50-5.90); RED CELL DISTRI WIDTH 14.3 % (0-14.5); WHITE BLOOD COUNT 15.1 10*3/uL (4.8-10.8)
[2020-05-15 06:58] LABS: CREATININE 1.52 mg/dL (0.70-1.30); POTASSIUM 4.4 mmol/L (3.5-5.1)
[2020-05-15 12:00] VITALS: BP 113/56
[2020-05-15 16:00] VITALS: BP 121/63
[2020-05-15 20:00] VITALS: BP 120/63
[2020-05-16] VITALS: BP 148/62
[2020-05-16 06:56] LABS: BASO % 0.3 % (0.0-1.0); EOS # 0.3 10*3/uL (0.0-0.4); EOS % 2.3 % (1.0-4.0); HEMATOCRIT 36.5 % (42.0-52.0); LYMPH # 3.4 10*3/uL (1.3-4.4); LYMPH % 23.5 % (27.0-41.0); MEAN CELL VOLUME 91.5 fl (80.0-94.0); MEAN CORPUSCULAR HGB 29.1 pg (27.0-31.0); MEAN CORPUSCULAR HGB CONC 31.8 g/dl (33.0-37.0); MONO # 0.5 10*3/uL (0.1-1.0); MONO % 3.3 % (3.0-9.0); NEUT % 69.8 % (47.0-73.0); PLATELET COUNT AUTOMATED 181 10*3/uL (130-400); RED BLOOD COUNT 3.99 10*6/uL (4.50-5.90); RED CELL DISTRI WIDTH 14.1 % (0-14.5); WHITE BLOOD COUNT 14.4 10*3/uL (4.8-10.8)
[2020-05-16 07:26] LABS: BUN 31 mg/dl (7-24); CHLORIDE 105 mmol/L (98-107); CREATININE 1.32 mg/dL (0.70-1.30); POTASSIUM 3.7 mmol/L (3.5-5.1); SODIUM 139 mmol/L (136-145)
[2020-05-16 08:00] VITALS: BP 132/52
[2020-05-16 12:00] VITALS: BP 128/50
[2020-05-16 16:00] VITALS: BP 136/94
[2020-05-16 20:00] VITALS: BP 125/76
[2020-05-17] VITALS: BP 139/50
[2020-05-17 06:37] LABS: BASO % 0.2 % (0.0-1.0); EOS # 0.3 10*3/uL (0.0-0.4); HEMATOCRIT 30.8 % (42.0-52.0); LYMPH # 3.3 10*3/uL (1.3-4.4); LYMPH % 38.3 % (27.0-41.0); MEAN CORPUSCULAR HGB 29.2 pg (27.0-31.0); MEAN CORPUSCULAR HGB CONC 32.8 g/dl (33.0-37.0); MEAN PLATELET VOLUME 9.6 fl (9.6-12.3); MONO # 0.4 10*3/uL (0.1-1.0); MONO % 4.7 % (3.0-9.0); NEUT # 4.6 10*3/uL (2.3-7.9); NEUT % 53.3 % (47.0-73.0); PLATELET COUNT AUTOMATED 162 10*3/uL (130-400); RED BLOOD COUNT 3.46 10*6/uL (4.50-5.90); RED CELL DISTRI WIDTH 13.8 % (0-14.5); WHITE BLOOD COUNT 8.6 10*3/uL (4.8-10.8)
[2020-05-17 06:59] LABS: BUN 25 mg/dl (7-24); CHLORIDE 108 mmol/L (98-107); POTASSIUM 3.6 mmol/L (3.5-5.1); SODIUM 141 mmol/L (136-145)
[2020-05-17 07:00] LABS: CREATININE 1.09 mg/dL (0.70-1.30)
[2020-05-17 08:00] VITALS: BP 137/48
[2020-05-17 12:00] VITALS: BP 144/44
[2020-05-17 16:00] VITALS: BP 113/42
[2020-05-17 20:00] VITALS: BP 141/48
[2020-05-18] VITALS: BP 177/65
[2020-05-18 01:00] VITALS: BP 122/52
[2020-05-18 06:49] LABS: BASO % 0.5 % (0.0-1.0); EOS # 0.2 10*3/uL (0.0-0.4); EOS % 3.7 % (1.0-4.0); HEMATOCRIT 28.8 % (42.0-52.0); LYMPH # 2.3 10*3/uL (1.3-4.4); LYMPH % 40.9 % (27.0-41.0); MEAN CELL VOLUME 88.9 fl (80.0-94.0); MEAN CORPUSCULAR HGB CONC 32.6 g/dl (33.0-37.0); MONO # 0.3 10*3/uL (0.1-1.0); NEUT # 2.8 10*3/uL (2.3-7.9); NEUT % 48.5 % (47.0-73.0); PLATELET COUNT AUTOMATED 160 10*3/uL (130-400); RED BLOOD COUNT 3.24 10*6/uL (4.50-5.90); RED CELL DISTRI WIDTH 13.6 % (0-14.5); WHITE BLOOD COUNT 5.7 10*3/uL (4.8-10.8)
[2020-05-18 07:07] LABS: BUN 24 mg/dl (7-24); CHLORIDE 106 mmol/L (98-107); CREATININE 1.34 mg/dL (0.70-1.30); POTASSIUM 3.9 mmol/L (3.5-5.1); SODIUM 138 mmol/L (136-145)
[2020-05-18 08:00] VITALS: BP 146/47
[2020-05-18 12:00] VITALS: BP 118/48
[2020-05-18 16:00] VITALS: BP 104/45
[2020-05-18 20:00] VITALS: BP 122/63
[2020-05-19] VITALS: BP 160/62
[2020-05-19 07:12] LABS: BASO % 0.3 % (0.0-1.0); EOS # 0.3 10*3/uL (0.0-0.4); EOS % 4.1 % (1.0-4.0); HEMATOCRIT 32.6 % (42.0-52.0); LYMPH # 2.6 10*3/uL (1.3-4.4); LYMPH % 33.4 % (27.0-41.0); MEAN CELL VOLUME 91.1 fl (80.0-94.0); MEAN CORPUSCULAR HGB 29.3 pg (27.0-31.0); MEAN CORPUSCULAR HGB CONC 32.2 g/dl (33.0-37.0); MEAN PLATELET VOLUME 10.3 fl (9.6-12.3); MONO # 0.5 10*3/uL (0.1-1.0); NEUT # 4.4 10*3/uL (2.3-7.9); NEUT % 55.7 % (47.0-73.0); PLATELET COUNT AUTOMATED 189 10*3/uL (130-400); RED BLOOD COUNT 3.58 10*6/uL (4.50-5.90); RED CELL DISTRI WIDTH 13.6 % (0-14.5); WHITE BLOOD COUNT 7.8 10*3/uL (4.8-10.8)
[2020-05-19 07:15] LABS: BUN 24 mg/dl (7-24); CHLORIDE 107 mmol/L (98-107); CREATININE 1.22 mg/dL (0.70-1.30); POTASSIUM 3.9 mmol/L (3.5-5.1); SODIUM 141 mmol/L (136-145)
[2020-05-19 08:00] VITALS: BP 140/48
[2020-05-19] MEDS ORDERED: HUMALOG100 UNIT/1 SQ (10:46)
[2020-05-19] MEDS ORDERED: LANTUS SOL100 UNIT/1 SC (10:48)
[2020-05-19 12:00] VITALS: BP 117/52
== END 2020-05-19 16:15 | disposition home health service (06) | DRG 70 ==
LOC: ED 04:17 → 5E 10:51 → EDHOLD 10:51 → 5E 11:10
PROVIDERS: Internal Medicine; Social Worker Clinical; Student in an Organized Health Care Education/Training Program; ADMIT Internal Medicine; ATTEND Internal Medicine
DX: G93.89 Other specified disorders of brain (principal); N17.0 Acute kidney failure with tubular necrosis; E11.641 Type 2 diabetes mellitus with hypoglycemia with coma; E44.0 Moderate protein-calorie malnutrition; E11.65 Type 2 diabetes mellitus with hyperglycemia; Z79.899 Other long term (current) drug therapy; D64.9 Anemia, unspecified; M1A.9XX0 Chronic gout, unspecified, without tophus (tophi); N18.30 Chronic kidney disease, stage 3 unspecified; Z20.822 Contact with and (suspected) exposure to COVID-19; E11.22 Type 2 diabetes mellitus with diabetic chronic kidney disease; E78.5 Hyperlipidemia, unspecified; Z79.4 Long term (current) use of insulin; F41.9 Anxiety disorder, unspecified; H91.13 Presbycusis, bilateral; Z86.73 Personal history of transient ischemic attack (TIA), and cerebral infarction without residual deficits; Z87.891 Personal history of nicotine dependence; Z80.0 Family history of malignant neoplasm of digestive organs; Z79.82 Long term (current) use of aspirin; Z79.51 Long term (current) use of inhaled steroids

== ENCOUNTER 2020-10-30 18:46 | Emergency (ER) | payer MEDICARE ==
[~2020-10-30] VITALS: Ht 175.2 cm; Wt 68.0 kg
[~2020-10-30 18:46] MED LIST changes: +HUMALOG100 UNIT/1 SQ; +HYDR25T PO; +METOPROLOL SUCC25 M2 PO; +VITAMIN D3125 MCG PO
[2020-10-30 20:36] LABS: BASO % 0.4 % (0.0-1.0); EOS # 0.1 10*3/uL (0.0-0.4); HEMATOCRIT 37.5 % (42.0-52.0); LYMPH # 2.4 10*3/uL (1.3-4.4); LYMPH % 32.1 % (27.0-41.0); MEAN CORPUSCULAR HGB 29.9 pg (27.0-31.0); MEAN CORPUSCULAR HGB CONC 32.8 g/dl (33.0-37.0); MEAN PLATELET VOLUME 10.3 fl (9.6-12.3); MONO # 0.2 10*3/uL (0.1-1.0); MONO % 3.1 % (3.0-9.0); NEUT # 4.7 10*3/uL (2.3-7.9); NEUT % 63.1 % (47.0-73.0); PLATELET COUNT AUTOMATED 200 10*3/uL (130-400); RED BLOOD COUNT 4.12 10*6/uL (4.50-5.90); RED CELL DISTRI WIDTH 14.3 % (0-14.5); WHITE BLOOD COUNT 7.4 10*3/uL (4.8-10.8)
[2020-10-30 20:44] LABS: BILIRUBIN Negative (Negative); BLOOD 1+ (Negative); CLARITY Clear (Clear); COLOR Yellow (Yellow); GLUCOSE Negative (Negative); KETONE 1+ (Negative); LEUKO ESTERASE Negative (Negative); NITRITE Negative (Negative); SPECIFIC GRAVITY 1.015 (1.001-1.030); UROBILINOGEN 0.2 E.U./dl (0.0-1.0)
[2020-10-30 20:49] LABS: BACTERIA TRACE; EPITHELIAL CELLS 0-2; RBC 0-2 rbc/hpf (0-2); WBC 0-2 wbc/hpf (0-5)
[2020-10-30 20:50] LABS: MUCOUS TRACE
[2020-10-30 20:51] LABS: ALBUMIN 3.4 gm/dl (3.1-4.5); ALKALINE PHOSPHATASE 66 U/L (45-117); BUN 31 mg/dl (7-24); CHLORIDE 110 mmol/L (98-107); CREATININE 1.32 mg/dL (0.70-1.30); POTASSIUM 4.3 mmol/L (3.5-5.1); SGOT/AST 25 IU/L (3-35); SODIUM 139 mmol/L (136-145); TOTAL PROTEIN 6.8 gm/dL (6.4-8.2)
[2020-10-30 20:56] LABS: SGPT/ALT 24 U/L (12-78)
== END 2020-10-30 23:48 | disposition home or self-care (01) ==
LOC: ED 18:46
PROVIDERS: Internal Medicine
DX: I95.1 Orthostatic hypotension (principal); N17.9 Acute kidney failure, unspecified; Z87.891 Personal history of nicotine dependence; Z79.82 Long term (current) use of aspirin; Z79.899 Other long term (current) drug therapy

== ENCOUNTER 2020-12-11 14:04 | Inpatient (IN) | payer OTHER ==
[~2020-12-11] VITALS: Ht 180.3 cm; Wt 81.6 kg
[2020-12-11 14:25] VITALS: BP 133/40
[2020-12-11 15:28] LABS: BASO % 0.4 % (0.0-1.0); EOS # 0.2 10*3/uL (0.0-0.4); HEMATOCRIT 37.5 % (42.0-52.0); LYMPH # 3.6 10*3/uL (1.3-4.4); LYMPH % 43.4 % (27.0-41.0); MEAN CELL VOLUME 92.8 fl (80.0-94.0); MEAN CORPUSCULAR HGB 29.7 pg (27.0-31.0); MEAN PLATELET VOLUME 10.4 fl (9.6-12.3); MONO # 0.4 10*3/uL (0.1-1.0); MONO % 4.4 % (3.0-9.0); NEUT # 4.1 10*3/uL (2.3-7.9); NEUT % 49.6 % (47.0-73.0); PLATELET COUNT AUTOMATED 197 10*3/uL (130-400); RED BLOOD COUNT 4.04 10*6/uL (4.50-5.90); RED CELL DISTRI WIDTH 14.9 % (0-14.5); WHITE BLOOD COUNT 8.4 10*3/uL (4.8-10.8)
[2020-12-11 15:47] LABS: ALBUMIN 3.6 gm/dl (3.1-4.5); CREATININE 1.63 mg/dL (0.70-1.30); POTASSIUM 4.5 mmol/L (3.5-5.1); TOTAL PROTEIN 6.8 gm/dL (6.4-8.2); TROPONIN I 0.023 ng/ml (<0.045)
[2020-12-11 16:11] LABS: BILIRUBIN Negative (Negative); BLOOD Trace-Lysed (Negative); CLARITY Clear (Clear); COLOR Yellow (Yellow); GLUCOSE Negative (Negative); KETONE Negative (Negative); LEUKO ESTERASE Negative (Negative); NITRITE Negative (Negative); PH 5.5 (4.5-8.0); SPECIFIC GRAVITY 1.015 (1.001-1.030)
[2020-12-11 16:23] LABS: MUCOUS TRACE
[2020-12-11 22:59] VITALS: BP 162/63
[2020-12-12 03:30] VITALS: BP 164/70
[2020-12-12 06:05] LABS: ALBUMIN 3.2 gm/dl (3.1-4.5); BUN 34 mg/dl (7-24); CHLORIDE 115 mmol/L (98-107); CREATININE 1.18 mg/dL (0.70-1.30); POTASSIUM 4.1 mmol/L (3.5-5.1); SGOT/AST 64 IU/L (3-35); SGPT/ALT 58 U/L (12-78); SODIUM 142 mmol/L (136-145); TOTAL PROTEIN 6.1 gm/dL (6.4-8.2)
[2020-12-12 06:12] LABS: ALKALINE PHOSPHATASE 72 U/L (45-117); FREE T4 1.32 ng/dl (0.76-1.46)
[2020-12-12 06:38] LABS: BASO % 0.5 % (0.0-1.0); EOS # 0.2 10*3/uL (0.0-0.4); EOS % 2.9 % (1.0-4.0); HEMATOCRIT 36.4 % (42.0-52.0); LYMPH # 4.5 10*3/uL (1.3-4.4); LYMPH % 54.9 % (27.0-41.0); MEAN CORPUSCULAR HGB 29.8 pg (27.0-31.0); MEAN CORPUSCULAR HGB CONC 31.3 g/dl (33.0-37.0); MONO # 0.3 10*3/uL (0.1-1.0); MONO % 3.8 % (3.0-9.0); NEUT # 3.1 10*3/uL (2.3-7.9); NEUT % 37.7 % (47.0-73.0); PLATELET COUNT AUTOMATED 188 10*3/uL (130-400); RED BLOOD COUNT 3.83 10*6/uL (4.50-5.90); RED CELL DISTRI WIDTH 15.1 % (0-14.5); WHITE BLOOD COUNT 8.2 10*3/uL (4.8-10.8)
[2020-12-12 08:24] LABS: VITAMIN D, 25-HYDROXY 56.1 ng/mL (30-100)
[2020-12-12 10:11] VITALS: BP 161/74
[2020-12-12] MEDS ORDERED: METFORMIN HCL500 M2 PO (13:00)
== END 2020-12-12 14:03 | disposition home or self-care (01) | DRG 562 ==
LOC: ED 14:04 → EDHOLD 18:20
PROVIDERS: Emergency Medicine; Internal Medicine; ADMIT Student in an Organized Health Care Education/Training Program; ATTEND Student in an Organized Health Care Education/Training Program
DX: S92.901A Unspecified fracture of right foot, initial encounter for closed fracture (principal); N17.0 Acute kidney failure with tubular necrosis; E86.0 Dehydration; N40.0 Benign prostatic hyperplasia without lower urinary tract symptoms; E78.5 Hyperlipidemia, unspecified; D64.9 Anemia, unspecified; E87.8 Other disorders of electrolyte and fluid balance, not elsewhere classified; R74.01 Elevation of levels of liver transaminase levels; E11.65 Type 2 diabetes mellitus with hyperglycemia; E55.9 Vitamin D deficiency, unspecified; H91.11 Presbycusis, right ear; N18.31 Chronic kidney disease, stage 3a; E11.22 Type 2 diabetes mellitus with diabetic chronic kidney disease; I12.9 Hypertensive chronic kidney disease with stage 1 through stage 4 chronic kidney disease, or unspecified chronic kidney disease; F41.9 Anxiety disorder, unspecified; M47.812 Spondylosis without myelopathy or radiculopathy, cervical region; W18.39XA Other fall on same level, initial encounter; Y93.89 Activity, other specified; Z86.73 Personal history of transient ischemic attack (TIA), and cerebral infarction without residual deficits; Z79.4 Long term (current) use of insulin; M1A.9XX0 Chronic gout, unspecified, without tophus (tophi); Y92.89 Other specified places as the place of occurrence of the external cause; Y99.8 Other external cause status